=== PATIENT | female | born 1985 | race Two or more races ===

== ENCOUNTER 2019-04-17 11:55 | Inpatient (IN) | payer OTHER ==
[2019-04-17] MEDS: ELECTROLYTE-148 SOLN 1,000 ML IV SCH ×2 (12:15→16:16)
[2019-04-17 12:34] VITALS: BMI 27.8
[2019-04-17] MEDS ORDERED: CITRIC ACID/SODIUM CITRATE 30 ML UNIT-DOSE CUP PO ONE ×2 (13:00→13:28)
[2019-04-17] MEDS ORDERED: ELECTROLYTE-148 SOLN 500 ML IV ONE (13:28)
[2019-04-17] MEDS ORDERED: OXYTOCIN 20 UNITS in 0.9% NS 20 UNIT/1,000 ML INFUS.BAG IV ONE ×2 (13:32→15:20)
--- NOTE | 2019-04-17 13:34 | HP ---
Past Medical History - Admission Chief Complaint: RLTCS History of Present Illness: 33yo @ 39wks here for scheduled RLTCS No VB/LOF. No ctx. +FM Preg c/b prior C/S, desires repeat History Source: Patient Limitations to Obtaining History: No Limitations - Past Medical History CAR RENTAL CLERK: No: Alzheimer's, CVA, Dementia, Migraine, Multiple Sclerosis, Peripheral Neuropathy, Parkinson's, Seizure, Syncope, TIA, Vertigo, Other Cardiovascular: No: AFIB, Aneurysm, Aortic Insufficiency, Aortic Stenosis, CAD, CHF, Deep Vein Thrombosis, HTN, Hyperlipdemia, [place], Mitral Insufficiency, Mitral Stenosis, Murmur, Pulmonary Hypertension, Other Pulmonary: No: Asthma, Bronchitis, Cancer, COPD, O2 Dependent, Pneumonia, Previously Intubated, Pulmonary Embolus, Pulmonary Fibrosis, Sleep Apnea, Other Gastrointestinal: Yes: Constipation ...: 5 ...Para: 2 ...Term: 2 ...: 0 ...Spon : 0 ...Induced : 2 ...LMP: 07/26/18 ... Weeks Gestation by Dates: 37.6 ...EDC by Dates: 05/02/19 ...EDC by Sono: 04/23/19 Heme/Onc: Yes: Anemia Infectious Disease: No: AIDS, C-Diff, Herpes Zoster, HIV, MRSA, STD's, Tuberculosis, VREF, Other Psych: No: Addictions, Anxiety, Bipolar, Depression, Panic, Psychosis, Schizophrenia, Other Musculoskeletal: No: Bursitis, Chronic low back pain, Hemiparesis, Hemiplegia, Osteoarthritis, Paraplegia, Other Rheumatology: No: Fibromyalgia, Gout, Lupus, Rheumatoid Arthritis, Sarcoidosis, Vasculitis, Other ENT: No: Allergic Rhinitis, Sinusitis, Other Dermatology: No: Basal Cell, Cellulitis, Eczema, Melanoma, Psoriasis, Squamous Cell, Other - Past Surgical History Past Surgical History: Yes: Hx Myomectomy: No Hx Transabdominal Cerclage: No - Smoking History Smoking history: Never smoked Have you smoked in the past 12 months: No Aproximately how many cigarettes per day: 10 - Alcohol/Substance Use Hx Alcohol Use: No History of Substance Use: reports: None - Social History Usual Living Arrangement: Yes: Alone History of Recent Travel: No Home Medications - Allergies Allergies/Adverse Reactions: Allergies Allergy/AdvReac Type Severity Reaction Status Date / Time No Known Allergies Allergy Verified 04/17/19 12:16 - Home Medications Home Medications: Ambulatory Orders Vit/Iron Fum/Folic AC [ Tablet] 1 each PO DAILY 02/16/16 Ferrous Sulfate [Feosol] 325 mg PO BID #60 ud 04/05/16 Review of Systems - Review of Systems Constitutional: denies: No Symptoms, Chills, Diaphoresis, Fever, Lethargy, Loss of Appetite, Malaise, Night Sweats, Unintentional Wgt. Loss, Weakness, Other Cardiovascular: denies: No Symptoms, Chest Pain, Edema, Palpitations, Shortness of Breath, Other Respiratory: denies: No Symptoms, Cough, Exercise Intolerance, Hemoptysis, Orthopnea, PND, Snoring, SOB, SOB on Exertion, Wheezing, Other Gastrointestinal: denies: No Symptoms, Abdominal Pain, Bloating, Constipation, Diarrhea, Dysphagia, Indigestion, Melena, Nausea, Rectal Bleeding, Vomiting, Vomiting Blood, Other Physical Exam - Maternity Vital Signs: Vital Signs Temperature 98.3 F 04/17/19 11:55 Pulse Rate 72 04/17/19 11:55 Respiratory Rate 17 04/17/19 11:55 Blood Pressure 103/62 04/17/19 11:55 O2 Sat by Pulse Oximetry (%) - Abdominal Exam/OB Number of Fetuses: Single Presentation: Vertex Contractions: No Category: I Accelerations: Non-Uniform - Vaginal Exam/OB Vaginal Bleediing: No Speculum Exam: No Amniotic Membrane Status: Intact Meconium: Light Station: -3 - Physical Exam Edema: No Assessment/Plan 33yo @ 39wks here for scheduled RLTCS Admit to L&D NPO, IVFs [facility] SCDs Risk of procedure reviewed with the patient including bleeding, infection, injury (bladder, bowel, vessels, adnexa). All consents signed. Martha Parnell MD
[2019-04-17] MEDS ORDERED: SUCCINYLCHOLINE CHLORIDE 200 MG/10 ML SYRINGE ONE (13:40)
[2019-04-17] MEDS ORDERED: morphine SULFATE/PF 0.5 MG/ML (2cc Syringe - QUVA) ONE (13:40)
[2019-04-17] MEDS ORDERED: PROPOFOL 20 ML ONE (13:40)
[2019-04-17] MEDS ORDERED: ePHEDrine SULFATE 50 MG/1 ML AMPULE ONE (13:40)
[2019-04-17] MEDS ORDERED: ceFAZolin SODIUM 1 GM VIAL ONE (14:12)
[2019-04-17] MEDS ORDERED: oxyCODONE HCL 5 MG TABLET PO PRN (14:47)
[2019-04-17] MEDS ORDERED: METHYLERGONOVINE MALEATE 0.2 MG/1 ML AMP IM PRN (14:47)
--- NOTE | 2019-04-17 14:48 | OP ---
Operative Note - Note: Operative Date: 04/17/19 Pre-Operative Diagnosis: 39 week gestation, Prior Operation: Repeat Findings: VFI, GLENDY position, no nuchal, no meconium, Apgars 9/9. Weight pending. Normal tubes and ovaries. Surgeon: Martha Parnell Optical Instrument Assembler: Anil Tabares Anesthesia: Spinal Estimated Blood Loss (mls): 500 Drains, Volume Out (mls): 50 (clear urine) Operative Report Dictated: Yes
[2019-04-17] MEDS ORDERED: SENNOSIDES/DOCUSATE COMBO (SENNA PLUS) TABLET (UD) PO PRN (14:49)
[2019-04-17] MEDS: OXYTOCIN 20 UNITS in 0.9% NS 20 UNIT/1,000 ML INFUS.BAG IV SCH (15:20)
[2019-04-17] MEDS ORDERED: IBUPROFEN 800 MG/8 ML IJ IVPB ONE (15:44)
[2019-04-17] MEDS: IBUPROFEN 800 MG/8 ML IJ IVPB PRN (15:45)
[2019-04-17] MEDS: FERROUS SO4 325 MG TABLET (FP) PO SCH (21:26)
[2019-04-18] MEDS: IBUPROFEN 800 MG/8 ML IJ IVPB PRN (00:04)
--- NOTE | 2019-04-18 08:08 | PN ---
Post Progress Note - Subjective Subjective: Pain controlled. Tolerating po Post Day: 1 Type of Delivery: Repeat C/S Vital Signs: Vital Signs Temperature 98.0 F 04/18/19 06:00 Pulse Rate 56 L 04/18/19 06:00 Respiratory Rate 18 04/18/19 06:00 Blood Pressure 92/54 L 04/18/19 06:00 O2 Sat by Pulse Oximetry (%) 100 04/17/19 15:45 Uterus: Yes: Fundus Firm Incision: Yes: Dressing dry and intact, Sutures intact Abdomen/GI: Yes: Abdomen soft Lochia: Yes: Rubra Lochia, amount: Small Extremities: Yes: Calves non-tender Perineum: Yes: Intact Activity: Ambulating Assessment/Plan 33yo s/p RLTCS, POD#1 Routine PP care Po Pain control D/C byers OOB, ambulate Labs pending Anticipate d/c to home POD#3 Martha Parnell MD
[2019-04-18 08:25] LABS: BASO % 0.2 % (0-2.0); EOS % 1.2 % (0-4.5); HEMATOCRIT 29.6 % (32.4-45.2); HEMOGLOBIN 9.4 GM/dL (10.7-15.3); LYMPH % 18.4 % (8-40); MCH 26.8 pg (25.7-33.7); MCHC 31.8 g/dl (32.0-36.0); MEAN CELL VOLUME 84.1 fl (80-96); MEAN PLT VOLUME 9.9 fl (7.5-11.1); MONO % 7.1 % (3.8-10.2); NEUT % 73.1 % (42.8-82.8); RBC 3.52 M/mm3 (3.60-5.2); RDW 14.4 % (11.6-15.6); WHITE BLOOD COUNT 12.3 K/mm3 (4.0-10.0)
[2019-04-18] MEDS: IBUPROFEN 600 MG TABLET (FP) PO PRN ×3 (08:28→20:00)
[2019-04-18] MEDS: SIMETHICONE 80 MG TAB.CHEW (FP) PO PRN ×3 (08:29→19:59)
[2019-04-18] MEDS: ACETAMINOPHEN 325 MG TABLET (FP) PO PRN ×3 (08:29→19:59)
--- NOTE | 2019-04-18 08:45 | PN ---
Progress Note (short form) - Note Progress Note: Anesthesia POD#1 S/P under Spinal anesthesia and duramorph VSS,no N/V,pain is under control, legs recovered fully. A/P Doing well. No complications to anesthesia. Yaneli Dawson MD.
[2019-04-18 09:09] LABS: PLATELET COUNT 133 K/MM3 (134-434)
[2019-04-18] MEDS: PRENATAL VITAMINS W/ FOLIC ACID TABLET (FP) PO SCH (10:00)
[2019-04-18] MEDS: FERROUS SO4 325 MG TABLET (FP) PO SCH ×2 (10:00→21:00)
[2019-04-18] MEDS ORDERED: BISACODYL 10 MG SUPP.RECT RC PRN (14:48)
[2019-04-18] MEDS: ELECTROLYTE-148 SOLN 1,000 ML IV SCH ×2 (19:06→19:07)
[2019-04-18] MEDS: OXYTOCIN 20 UNITS in 0.9% NS 20 UNIT/1,000 ML INFUS.BAG IV SCH (19:13)
[2019-04-19] MEDS: SIMETHICONE 80 MG TAB.CHEW (FP) PO PRN ×3 (04:12→20:18)
[2019-04-19] MEDS: ACETAMINOPHEN 325 MG TABLET (FP) PO PRN ×3 (04:12→20:18)
[2019-04-19] MEDS: IBUPROFEN 600 MG TABLET (FP) PO PRN ×3 (04:12→20:18)
--- NOTE | 2019-04-19 06:13 | PN ---
Progress Note (short form) - Note Progress Note: pod 2 s/p c/s , doing well, ambulating, no excess vaginal bleeding, noc/o CBC, BMP 04/18/19 07:52 Last Vital Signs Temp Pulse Resp BP Pulse Ox 98.0 F 70 18 122/46 L 100 04/18/19 19:38 04/18/19 19:38 04/18/19 19:38 04/18/19 19:38 04/17/19 15:45 abdomen soft, no distension, no cva incision dry, clean no calf tenderness plan ambulate , cbc in am pain management
[2019-04-19] MEDS: FERROUS SO4 325 MG TABLET (FP) PO SCH ×2 (09:18→22:00)
[2019-04-19] MEDS: PRENATAL VITAMINS W/ FOLIC ACID TABLET (FP) PO SCH (09:18)
--- NOTE | 2019-04-20 06:41 | DS ---
Physical Exam-BEAMER HAND Vital Signs: Vital Signs Temperature 98.6 F 04/19/19 20:51 Pulse Rate 65 04/19/19 20:51 Respiratory Rate 18 04/19/19 20:51 Blood Pressure 115/64 04/19/19 20:51 O2 Sat by Pulse Oximetry (%) 100 04/17/19 15:45 Constitutional: Yes: Well Nourished Eyes: Yes: Conjunctiva Clear HENT: Yes: Atraumatic Neck: Yes: Supple Cardiovascular: Yes: Regular Rate and Rhythm Respiratory: Yes: Regular Gastrointestinal: Yes: Normal Bowel Sounds ...Rectal Exam: Yes: WNL Renal/: Yes: WNL Pelvis: Yes: WNL External Genitalia: Yes: Normal Vaginal Exam: Yes: Normal Cervix: Yes: Normal ....Post : Yes: Uterus firm Wound/Incision: Yes: Well Approximated Neurological: Yes: Alert, Oriented ...Motor Strength: WNL Psychiatric: Yes: Alert, Oriented Labs: CBC, BMP 04/18/19 07:52 Delivery - Delivery Type of Anesthesia: Spinal EBL (cc): 500 Delivery, Single - Stages of Labor Date of Delivery: 04/17/19 Time of Delivery: 14:22 Time Placenta Delivered: 14:23 - Condition of Lead Pharmacy Technician/Tinsmith Apprentice Present: Yes Name: Zahira Ames Gender: Female Weight: 6 lb 1 oz Total Hours ROM (Hrs/Mins): 1 minute - 1 Minute Total Score: 9 5 Minutes Total Score: 9 - Feeding Plan Initial Plan: Elected not to breastfeed exclusively throughout hospitalization Discharge Summary Reason For Visit: Procedures: Principal: delivery Hospital Course: Routine post op care Condition: Stable - Instructions Diet, Activity, Other Instructions: Regular Diet Follow up in 4-6 weeks Referrals: Martha Parnell MD [Staff Physician] - Disposition: HOME - Home Medications Comprehensive Discharge Medication List: Ambulatory Orders Vit/Iron Fum/Folic AC [ Tablet] 1 each PO DAILY 02/16/16 Ferrous Sulfate [Feosol] 325 mg PO BID #60 ud 04/05/16 Ibuprofen 600 mg PO Q6H PRN #30 tablet 04/17/19 Oxycodone HCl/Acetaminophen [Percocet 5-325 mg Tablet -] 1 - 2 tab PO Q6H PRN # 15 tab MDD 3 04/17/19
[2019-04-20] MEDS: IBUPROFEN 600 MG TABLET (FP) PO PRN (07:22)
[2019-04-20] MEDS: ACETAMINOPHEN 325 MG TABLET (FP) PO PRN (07:23)
[2019-04-20] MEDS: SIMETHICONE 80 MG TAB.CHEW (FP) PO PRN (07:23)
[2019-04-20 08:14] LABS: BASO % 0.4 % (0-2.0); EOS % 2.1 % (0-4.5); HEMATOCRIT 29.4 % (32.4-45.2); HEMOGLOBIN 9.5 GM/dL (10.7-15.3); MCH 27.1 pg (25.7-33.7); MCHC 32.5 g/dl (32.0-36.0); MEAN CELL VOLUME 83.6 fl (80-96); MONO % 6.6 % (3.8-10.2); NEUT % 60.9 % (42.8-82.8); PLATELET COUNT 156 K/MM3 (134-434); RBC 3.51 M/mm3 (3.60-5.2); RDW 14.3 % (11.6-15.6); WHITE BLOOD COUNT 10.1 K/mm3 (4.0-10.0)
[2019-04-20 08:44] VITALS: BP 126/63; PULSE 53; TEMP 98.5
[2019-04-20] MEDS: PRENATAL VITAMINS W/ FOLIC ACID TABLET (FP) PO SCH (09:34)
[2019-04-20] MEDS: FERROUS SO4 325 MG TABLET (FP) PO SCH (09:34)
--- NOTE | 2019-04-23 15:25 | PATH ---
Surgical Pathology Report Patient Name: STEVE HEREDIA Med. Rec. #: [id number] /Age/Gender: 1985 (Age: 33) / F Account: [id number] Location: [facility] OBS/SEGMENT PRODUCER Taken: 04/17/2019 Received: 04/18/2019 Reported: 04/23/2019 Physicians: Martha Parnell Specimen(s) Received PLACENTA Clinical History , 2009 and 2016, induced abortions x2 Final Diagnosis PLACENTA, : MATURE THIRD TRIMESTER PLACENTA SHOWING ACUTE CHORIOAMNIONITIS AND TRIVESSEL UMBILICAL CORD. Electronically Signed Paula Allen M.D. Gross Description The specimen is received fresh labeled placenta and is a 331 gram, 14.5 x 13.5 x 2.6 cm. placenta with attached membranes and umbilical cord. The attached membranes are santos, translucent with focal opacities and insert marginally. The umbilical cord measures 29 cm. in length and averages 0.9 cm. in diameter. The cord inserts centrally. No true knots or strictures are identified. Cut surface of the umbilical cord reveals 3 vessels. The surface is villatoro-blue with minimal fibrin deposition and appropriate caliber vessels. The maternal surface is red-brown with focal defects. Sectioning reveals red-brown, spongy parenchyma. No lesions are identified. Mechanical Engineering Officer sections are submitted in three cassettes as follows: 1- membrane rolls and umbilical cord; 2-3- full thickness sections of placenta. /04/19/2019 saudi04/19/2019
== END 2019-04-20 12:40 | disposition home or self-care (01) | DRG 540 ==
LOC: JLDR 11:55 → J3W 16:33
PROVIDERS: ADMIT Obstetrics & Gynecology; ATTEND Obstetrics & Gynecology
PROC: 10D00Z1 Extraction of Products of Conception, Low, Open Approach (ICD-10-PCS; principal; 2019-04-17)
DX: O34.211 Maternal care for low transverse scar from previous cesarean delivery (principal); Z37.0 Single live birth; Z3A.39 39 weeks gestation of pregnancy
CPT/HCPCS: 36415; 85025; 88307-TC